=== PATIENT | female | born 1960 | race Caucasian/White ===

== ENCOUNTER 2024-09-30 10:34 | Emergency (ER) | payer MEDICARE ==
--- NOTE | 2024-09-30 10:59 | ED ---
Skin/Abscess/FB HPI - General Chief complaint: Skin/Abscess/Foreign Body Stated complaint: Infection on leg Time Seen by Provider: 09/30/24 10:44 Source: patient, RN notes reviewed Mode of arrival: ambulatory Limitations: no limitations - History of Present Illness Initial comments: This is a 63-year-old female who presents to the emergency department for a left leg infection. States that her dog scratched her on her left leg several weeks ago and this has developed into a larger wound with drainage. She went to urgent care for additional evaluation, however they advised she come here for an IV. This is only mildly uncomfortable. Denies any fevers/chills. Of note, her lower legs are both very scaly and erythematous, which she states is a chronic issue and she has been following with dermatology. Patient also noted to have a low oxygen saturation. She has a history of COPD and states that her oxygen is always in the 80s. They have offered to put her on supplemental oxygen, however she declines that and she states that she does not feel short of breath. - Related Data Previous Rx's Medication Instructions Recorded clindamycin HCL 300 mg PO QID 10 Days #40 capsule 09/30/24 Allergies Allergy/AdvReac Type Severity Reaction Status Date / Time cefaclor [From Ceclor] Allergy Anaphylaxis Verified 09/30/24 10:42 cephalexin [From Keflex] Allergy Hallucinati Verified 09/30/24 10:42 ons Review of Systems ROS Statement: Those systems with pertinent positive or pertinent negative responses have been documented in the HPI. ROS Other: All systems not noted in ROS Statement are negative. Past Medical History Past Medical History: COPD, Hypertension Additional Past Medical History / Comment(s): back pain History of Any Multi-Drug Resistant Organisms: None Reported Past Surgical History: Back Surgery, Hysterectomy Smoking Status: Current every day smoker Past Alcohol Use History: None Reported Past Drug Use History: None Reported General Exam Limitations: no limitations General appearance: alert, in no apparent distress Head exam: Present: atraumatic, normocephalic, normal inspection Respiratory exam: Present: wheezes, decreased breath sounds, prolonged expirator y Cardiovascular Exam: Present: regular rate, normal rhythm Extremities exam: Present: other (Scaling and erythema to the bilateral lower extremities. There is an open wound to the posterior aspect of the left calf with active drainage) Neurological exam: Present: alert, oriented X3, CN II-XII intact Psychiatric exam: Present: normal affect, normal mood Course Vital Signs 09/30/24 09/30/24 09/30/24 10:37 11:23 11:32 Temperature 97.6 F Pulse Rate 97 80 80 Respiratory 18 18 18 Rate Blood Pressure 178/111 O2 Sat by Pulse 82 L Oximetry 09/30/24 09/30/24 09/30/24 11:50 12:35 13:46 Temperature 98.6 F Pulse Rate 77 76 83 Respiratory 22 20 16 Rate Blood Pressure 169/97 156/90 158/105 O2 Sat by Pulse 82 L 82 L 82 L Oximetry Medical Decision Making - Medical Decision Making This is a 63-year-old female who presents to the emergency department for a left leg infection. Was pt. sent in by a medical professional or institution? @ -No Did you speak to anyone other than the patient for history? @ -No Did you review nursing and triage notes? @ -Yes, and I agree, it is accurate with regards to the patient's symptoms. Were old charts reviewed? @ -No Differential Diagnosis? @ -Cellulitis, abscess, abrasion, this is not meant to be an all-inclusive list. EKG interpreted by me (3pts min.)? @ -Not obtained X-rays interpreted by me (1pt min.)? @ -X-ray of the left tib-fib obtained. My interpretation identifies no evidence of osseous erosion. CT interpreted by me (1pt min.)? @ -Not obtained U/S interpreted by me (1pt. min.)? @ -Not obtained What testing was considered but not performed? (CT, X-rays, U/S, labs)? Why? @ -None What meds were considered but not given? Why? @ -None Did you discuss the management of the patient with other professionals? @ -No Did you reconcile home meds? @ -No Was smoking cessation discussed for >3mins.? @ -No Was critical care preformed (if so, how long)? @ -No Were there social determinants of health that impacted care today? How? (Homelessness, low income, unemployed, alcoholism, drug addiction, transportation, low edu. Level, literacy, decrease access to med. care, fdc, rehab)? @ -No Was there de-escalation of care discussed even if they declined? (Discuss DNR or withdrawal of care, Hospice)? @ -No What co-morbidities impacted this encounter? (DM, HTN, Smoking, COPD, CAD, Cancer, CVA, Hep., AIDS, mental health diagnosis, sleep apnea, morbid obesity)? @ -COPD Was patient admitted / discharged? @ -Lab work demonstrates an elevated lactic acid of 4.8 and CRP of 2.0. X-ray of the left tib-fib demonstrates soft tissue swelling without evidence of subcutaneous gas or osseous erosion. She had an open wound on the back of the leg with active drainage. I advised admission given the wound presentation with elevated lactic acid of 4.8. However, patient refused and states that she would rather go home with the understanding that she would need to sign out AMA. Given that she is allergic to cephalosporins, she was given a dose of IV clindamycin prior to discharge and a 10-day course of clindamycin was prescribed. Aerobic and anaerobic wound cultures were obtained as well. Additionally, oxygen saturation was 82% on room air. Patient reports that this is chronic for her. I did offer supplemental oxygen which she refused. States that she is not short of breath and is not concerned about this. While she did leave AMA, we did review strict return parameters and close follow-up with her PCP. Case discussed with ED attending Dr. Blas. Undiagnosed new problem with uncertain prognosis? @ -None Drug Therapy requiring intensive monitoring for toxicity (Heparin, Nitro, Insulin, Cardizem)? @ -None Were any procedures done? @ -None Diagnosis/symptom? @ -Left leg cellulitis Acute, or Chronic, or Acute on Chronic? @ -Acute Uncomplicated (without systemic symptoms) or Complicated (systemic symptoms)? @ -Uncomplicated Side effects of treatment? @ -None Exacerbation, Progression, or Severe Exacerbation] @ -Not applicable Poses a threat to life or bodily function? @ -This will depend on how it progresses - Lab Data Result diagrams: 09/30/24 10:59 09/30/24 10:59 Lab Results 09/30/24 09/30/24 09/30/24 Range/Units 10:59 10:59 10:59 WBC 6.8 (3.8-10.6) k/uL RBC 4.64 (3.80-5.40) m/uL Hgb 15.0 (11.4-16.0) gm/dL Hct 52.0 H (34.0-46.0) % MCV 112.0 H (80.0-100.0) fL MCH 32.4 (25.0-35.0) pg MCHC 28.9 L (31.0-37.0) g/dL RDW 16.2 H (11.5-15.5) % Plt Count 246 (150-450) k/uL MPV 8.5 Neutrophils % 74 % Lymphocytes % 19 % Monocytes % 5 % Eosinophils % 1 % Basophils % 0 % Neutrophils # 5.1 (1.3-7.7) k/uL Lymphocytes # 1.3 (1.0-4.8) k/uL Monocytes # 0.3 (0-1.0) k/uL Eosinophils # 0.1 (0-0.7) k/uL Basophils # 0.0 (0-0.2) k/uL Manual Slide Review Performed Hypochromasia Marked Anisocytosis Slight Macrocytosis Marked A Sodium 142 (137-145) mmol/L Potassium 4.5 (3.5-5.1) mmol/L Chloride 101 (98-107) mmol/L Carbon Dioxide 36 H (22-30) mmol/L Anion Gap 5 mmol/L BUN 16 (7-17) mg/dL Creatinine 0.48 L (0.52-1.04) mg/dL Est GFR (CKD-EPI)AfAm >90 (>60 ml/min/1.73 sqM) Est GFR (CKD-EPI)NonAf >90 (>60 ml/min/1.73 sqM) Glucose 101 H (74-99) mg/dL Lactic Ac Sepsis Rflx Plasma Lactic Acid Miky 4.8 H* (0.7-2.0) mmol/L Calcium 9.1 (8.4-10.2) mg/dL Total Bilirubin 0.6 (0.2-1.3) mg/dL AST 28 (14-36) U/L ALT 16 (4-34) U/L Alkaline Phosphatase 81 (38-126) U/L C-Reactive Protein 2.0 H (<1.0) mg/dL Total Protein 7.6 (6.3-8.2) g/dL Albumin 4.0 (3.5-5.0) g/dL 03/10/25 Range/Units 12:07 WBC (3.8-10.6) k/uL RBC (3.80-5.40) m/uL Hgb (11.4-16.0) gm/dL Hct (34.0-46.0) % MCV (80.0-100.0) fL MCH (25.0-35.0) pg MCHC (31.0-37.0) g/dL RDW (11.5-15.5) % Plt Count (150-450) k/uL MPV Neutrophils % % Lymphocytes % % Monocytes % % Eosinophils % % Basophils % % Neutrophils # (1.3-7.7) k/uL Lymphocytes # (1.0-4.8) k/uL Monocytes # (0-1.0) k/uL Eosinophils # (0-0.7) k/uL Basophils # (0-0.2) k/uL Manual Slide Review Hypochromasia Anisocytosis Macrocytosis Sodium (137-145) mmol/L Potassium (3.5-5.1) mmol/L Chloride (98-107) mmol/L Carbon Dioxide (22-30) mmol/L Anion Gap mmol/L BUN (7-17) mg/dL Creatinine (0.52-1.04) mg/dL Est GFR (CKD-EPI)AfAm (>60 ml/min/1.73 sqM) Est GFR (CKD-EPI)NonAf (>60 ml/min/1.73 sqM) Glucose (74-99) mg/dL Lactic Ac Sepsis Rflx Y Plasma Lactic Acid Miky (0.7-2.0) mmol/L Calcium (8.4-10.2) mg/dL Total Bilirubin (0.2-1.3) mg/dL AST (14-36) U/L ALT (4-34) U/L Alkaline Phosphatase (38-126) U/L C-Reactive Protein (<1.0) mg/dL Total Protein (6.3-8.2) g/dL Albumin (3.5-5.0) g/dL - Radiology Data Radiology results: report reviewed, image reviewed Disposition Clinical Impression: Left leg cellulitis, COPD with hypoxia Disposition: LEFT AGAINST MEDICAL ADVICE Instructions (If sedation given, give patient instructions): Cellulitis (ED) Additional Instructions: Return to the emergency department with any new, worsening, or concerning symptoms. Take the antibiotic as prescribed for 10 days. Follow up with your primary care provider in 1-2 days. Prescriptions: clindamycin HCL 300 mg PO QID 10 Days #40 capsule Is patient prescribed a controlled substance at d/c from ED?: No Referrals: Abe Lilly DO [Primary Care Provider] - 1-2 days Time of Disposition: 13:07
[2024-09-30] MEDS: IPRATROPIUM-ALBUTEROL 3 ML NEB INHALATION STA (11:23)
[2024-09-30 11:26] LABS: Anisocytosis Slight; Basophils % (A) 0 %; Eosinophils # (A) 0.1 k/uL (0-0.7); Eosinophils % (A) 1 %; Hypochromasia Marked; Lymphocytes # (A) 1.3 k/uL (1.0-4.8); Lymphocytes % (A) 19 %; MCH 32.4 pg (25.0-35.0); MCHC 28.9 g/dL (31.0-37.0); Macrocytosis Marked; Mean Platelet Volume 8.5; Monocytes # (A) 0.3 k/uL (0-1.0); Monocytes % (A) 5 %; Neutrophils # (A) 5.1 k/uL (1.3-7.7); Neutrophils % (A) 74 %; Platelet Count 246 k/uL (150-450); RBC 4.64 m/uL (3.80-5.40); RDW 16.2 % (11.5-15.5); WBC 6.8 k/uL (3.8-10.6)
--- NOTE | 2024-09-30 11:38 | XR ---
EXAMINATION TYPE: XR tibia fibula LT DATE OF EXAM: 09/30/2024 11:14 AM COMPARISON: None CLINICAL INDICATION: Female, 63 years old with history of Leg infection; PHH, pain TECHNIQUE: XR tibia fibula LT; examined in AP and lateral projections. FINDINGS: Soft tissue swelling without evidence for radiopaque foreign body saphenous gas or osseous erosion. No evidence of any acute osseous pathology, joint dislocation. IMPRESSION: Soft tissue swelling without evidence for radiopaque foreign body saphenous gas or osseous erosion. N o evidence of acute fracture. [facility], , 09/30/2024 11:35 AM
[2024-09-30 11:53] LABS: ALT 16 U/L (4-34); AST 28 U/L (14-36); African American GFR (CKD) >90 (>60 ml/min/1.73 sqM); Alkaline Phosphatase 81 U/L (38-126); Anion Gap 5 mmol/L; Blood Urea Nitrogen 16 mg/dL (7-17); Calcium 9.1 mg/dL (8.4-10.2); Carbon Dioxide 36 mmol/L (22-30); Chloride 101 mmol/L (98-107); Glucose 101 mg/dL (74-99); Non-African American GFR(CKD) >90 (>60 ml/min/1.73 sqM); Potassium 4.5 mmol/L (3.5-5.1); Sodium 142 mmol/L (137-145); Total Bilirubin 0.6 mg/dL (0.2-1.3); Total Protein 7.6 g/dL (6.3-8.2)
[2024-09-30] MEDS: CLINDAMYCIN 600 MG in DEXTROSE 5% IN WATER 50 ML IVPB STA (11:59)
[2024-09-30] MEDS: SODIUM CHLORIDE 0.9% 1,000 ML IV SCH (12:15)
[2024-09-30 12:37] VITALS: TEMP 98.6
[2024-09-30 13:47] VITALS: BP 158/105; PULSE 83; RESP 16
[2024-09-30 15:35] LABS: Erythrocyte Sedimentation Rate 46 mm/Hr (0-30)
== END 2024-09-30 13:52 | disposition left against medical advice (07) ==
LOC: EC 10:34
DX: L03.116 Cellulitis of left lower limb (principal); J44.9 Chronic obstructive pulmonary disease, unspecified; R74.02 Elevation of levels of lactic acid dehydrogenase [LDH]; F17.200 Nicotine dependence, unspecified, uncomplicated; Z53.29 Procedure and treatment not carried out because of patient's decision for other reasons
CPT/HCPCS: 99284; 96365; 96361; 36415; 94640; 80053; 85652; 83605; 85025; 86140; 87070; 87205; 87075; 73590; J0736

== ENCOUNTER → 2025-01-22 | Outpatient (CLI) | payer MEDICARE ==
[2025-01-22 15:51] LABS: NT-Pro-B-Type Natriuretic Pept 1615 pg/mL (0-125)
[2025-01-22 15:56] LABS: ALT 40 U/L (8-44); AST 36 U/L (13-35); Anion Gap 11.10 mmol/L (4.00-12.00); BUN/Creat Ratio 45.14 Ratio (12.00-20.00); Blood Urea Nitrogen 31.6 mg/dL (9.0-27.0); Calcium 9.4 mg/dL (8.7-10.3); Carbon Dioxide 35.9 mmol/L (21.6-31.8); Chloride 95 mmol/L (96-109); Cholesterol 135.00 mg/dL (0.00-200.00); Glucose 65 mg/dL (70-110); HDL Cholesterol 75.60 mg/dL (40.00-60.00); LDL Cholesterol,Calculated 47.8 mg/dL (0.0-131.0); Potassium 4.8 mmol/L (3.5-5.5); Sodium 142 mmol/L (135-145); Triglycerides 57.90 mg/dL (0.00-149.00); VLDL Calculation 11.58 mg/dL (5.00-40.00)
== END | disposition home or self-care (01) ==
LOC: LABWHC1 10:06
PROVIDERS: ATTEND Internal Medicine Cardiovascular Disease
DX: E78.2 Mixed hyperlipidemia (principal); I50.9 Heart failure, unspecified
CPT/HCPCS: 36415; 80048; 80061; 83880; 84443; 84450; 84460

== ENCOUNTER 2025-02-05 23:46 | Observation (INO) | payer MEDICARE ==
--- NOTE | 2025-02-06 00:03 | ED ---
Psych HPI - General Chief Complaint: Psychiatric Symptoms Stated Complaint: AMS Time Seen by Provider: 02/05/25 23:56 Source: patient, family, RN notes reviewed, old records reviewed Mode of arrival: ambulatory - History of Present Illness Initial Comments: This is a 64 female to the ER for evaluation she is brought in by who states he is at his wits end with her mental status mental health confusion debility weakness failure to thrive and inability to take care of herself complete daily tasks and will 12 MD Complaint: feels depressed, altered mental status, other (Confusion) Associated Psychiatric Symptoms: depression Quality: constant, getting worse Worsens With: medication Context: new medication(s), significant life stressor Associated Symptoms: denies other symptoms Treatments Prior to Arrival: placed on mental health hold - Related Data Home Medications Medication Instructions Recorded Confirmed ALPRAZolam [Xanax] 0.25 mg PO TID 02/06/25 02/06/25 Albuterol Sulfate [Albuterol 2 puff INHALATION RT-Q6H PRN 02/06/25 02/06/25 Sulfate Hfa] Apixaban [Eliquis] 5 mg PO BID 02/06/25 02/06/25 Benzonatate [Tessalon Perle] 200 mg PO QID PRN 02/06/25 02/06/25 Fluticasone/Umeclidin/Vilanter 1 puff INHALATION RT-DAILY 02/06/25 02/06/25 [Trelegy Ellipta 200-62.5-25] Folic Acid 1 mg PO DAILY 02/06/25 02/06/25 Losartan [Cozaar] 25 mg PO DAILY 02/06/25 02/06/25 amLODIPine [Norvasc] 5 mg PO DAILY 02/06/25 02/06/25 methocarbamoL [Robaxin-750] 750 mg PO QID PRN 02/06/25 02/06/25 Previous Rx's Medication Instructions Recorded Acetaminophen Tab [Tylenol] 650 mg PO Q6HR PRN tab 02/07/25 Mirtazapine 7.5 mg PO HS #30 tablet 02/07/25 Allergies Allergy/AdvReac Type Severity Reaction Status Date / Time cefaclor [From Ceclor] Allergy Anaphylaxis Verified 02/06/25 09:12 cephalexin [From Keflex] Allergy Hallucinati Verified 02/06/25 09:12 ons Review of Systems ROS Statement: Those systems with pertinent positive or pertinent negative responses have been documented in the HPI. ROS Other: All systems not noted in ROS Statement are negative. Past Medical History Past Medical History: Heart Failure, COPD, Hypertension Additional Past Medical History / Comment(s): back pain History of Any Multi-Drug Resistant Organisms: None Reported Past Surgical History: Back Surgery, Hysterectomy Past Psychological History: Anxiety, Depression Smoking Status: Current every day smoker Past Alcohol Use History: None Reported Past Drug Use History: Prescription Drug Abuse - Past Family History Father Family Medical History: Coronary Artery Disease (CAD) General Exam Limitations: no limitations General appearance: alert, in no apparent distress Head exam: Present: atraumatic, normocephalic, normal inspection Eye exam: Present: normal appearance, PERRL, EOMI. Absent: scleral icterus, conjunctival injection, periorbital swelling ENT exam: Present: normal exam, mucous membranes moist Neck exam: Present: normal inspection. Absent: tenderness, meningismus, lymphadenopathy Respiratory exam: Present: normal lung sounds bilaterally. Absent: respiratory distress, wheezes, rales, rhonchi, stridor Cardiovascular Exam: Present: regular rate, normal rhythm, normal heart sounds. Absent: systolic murmur, diastolic murmur, rubs, gallop, clicks GI/Abdominal exam: Present: soft, normal bowel sounds. Absent: distended, tenderness, guarding, rebound, rigid Extremities exam: Present: normal inspection, full ROM, normal capillary refill. Absent: tenderness, pedal edema, joint swelling, calf tenderness Back exam: Present: normal inspection Neurological exam: Present: alert, oriented X3, CN II-XII intact Psychiatric exam: Present: normal affect, normal mood Skin exam: Present: warm, dry, intact, normal color. Absent: rash Course Vital Signs 02/05/25 02/06/25 02/06/25 23:49 05:13 06:33 Temperature 97.5 F L Pulse Rate 94 98 102 H Respiratory 16 18 18 Rate Blood Pressure 133/76 164/100 162/106 O2 Sat by Pulse 94 L 94 L 92 L Oximetry - Reevaluation(s) Reevaluation #1: 02/06/25 02:43 Medical records reviewed Reevaluation #2: 02/06/25 02:43 Patient symptoms are unchanged Reevaluation #3: 02/06/25 02:43 Patient is informed of results and questions answered Reevaluation #4: Was pt. sent in by a medical professional or institution ([facility], [employer], urgent care, hospital, or penitentiary...) When possible be specific @ -no Did you speak to anyone other than the patient for history (EMS, parent, family, police, friend...)? What history was obtained from this source @ -no Did you review nursing and triage notes (agree or disagree)? Why? @ -agree Are old charts reviewed (outside hosp., previous admission, EMS record, old EKG, old radiological studies, urgent care reports/EKG's, penitentiary records)? Report findings @ -yes Differential Diagnosis (chest pain, altered mental status, abdominal pain women, abdominal pain men, vaginal bleeding, weakness, fever, dyspnea, syncope, headache, dizziness, GI bleed, back pain, seizure, CVA, palpatations, mental health, musculoskeletal)? @ -prior EKG interpreted by me (3pts min.). @ -yes X-rays interpreted by me (1pt min.). @ -yes negative for acute disease CT interpreted by me (1pt min.). @ -US negative for acute disease U/S interpreted by me (1pt. min.). @ -no What testing was considered but not performed or refused? (CT, X-rays, U/S, labs)? Why? @ -none What meds were considered but not given or refused? Why? @ -none Did you discuss the management of the patient with other professionals (professionals i.e. [facility], [employer], lab, RT, psych nurse, social media community manager, machinery repair maintenance supervisor, teacher, executive vice president and chief financial officer, case packer and sealer)? Give summary @ -no Was smoking cessation discussed for >3mins.? @ -no Was critical care preformed (if so, how long)? @ -no Were there social determinants of health that impacted care today? How? (Homelessness, low income, unemployed, alcoholism, drug addiction, t ransportation, low edu. Level, literacy, decrease access to med. care, [facility], rehab)? @ -none Was there de-escalation of care discussed even if they declined (Discuss DNR or withdrawal of care, Hospice)? DNR status @ -no What co-morbidities impacted this encounter? (DM, HTN, Smoking, COPD, CAD, Can cer, CVA, ARF, Chemo, Hep., AIDS, mental health diagnosis, sleep apnea, morbid obesity)? @ -none Was patient admitted / discharged? Hospital course, mention meds given and route, prescriptions, significant lab abnormalities, going to OR and other pertinent info. @ - 64 female to the ER for evaluation, patient has significant debility severe weight loss unable to eat or drink unable to take care of herself, patient is brought in by who states that at some point patient was lost to go to live she suffers from addiction and severe illness Admitted Undiagnosed new problem with uncertain prognosis? @ -no Drug Therapy requiring intensive monitoring for toxicity (Heparin, Nitro, Insulin, Cardizem)? @ -no Were any procedures done? @ -no Diagnosis/symptom? @ -Altered mental status debility failure to thrive depression Acute, or Chronic, or Acute on Chronic? @ -Acute Uncomplicated (without systemic symptoms) or Complicated (systemic symptoms)? @ -Complicated Side effects of treatment? @ -no Exacerbation, Progression, or Severe Exacerbation? @ -exacerbation Poses a threat to life or bodily function? How? (Chest pain, USA, MS, pneumonia, PE, COPD, DKA, ARF, appy, cholecystitis, CVA, Diverticulitis, Homicidal, Suicidal, threat to staff... and all critical care pts) @ -no Reevaluation #5: Differential Altered Mental Status: Hypoglycemia, DKA, hypercapnia, ETOH, overdose, CO poisoning, trauma, myxedema coma, HTN encephalopathy, infection, encephalitis, psychosis, intercranial hemorrhage, hepatic encephalopathy, meningitis, CVA, this is not meant to be an all-inclusive list Differential Mental Health Depression, anxiety, bipolar, psychosis, schizophrenia, borderline personality, situational depression, adjustment disorder, behavioral disorder, brain tumor, malingering, substance abuse, encephalopathy, medication reaction, dementia, hypothyroidism, degenerative neurologic disorder, lupus.... This is not meant to be all-inclusive list - Consultations Consultation #1: Spoke with Dr. Whiteside agrees to admit this patient Medical Decision Making - Medical Decision Making 64 female to the ER for evaluation, patient has significant debility severe weight loss unable to eat or drink unable to take care of herself, patient is brought in by who states that at some point patient was lost to go to live she suffers from addiction and severe illness - Lab Data Result diagrams: 02/07/25 05:11 02/07/25 05:11 - EKG Data -: EKG Interpreted by Me (EKG sinus 95 VA 144 QRS 84 QTc 409) - Radiology Data Radiology results: report reviewed (CT brain and chest x-ray are negative for acute disease), image reviewed Disposition Clinical Impression: Adjustment reaction of adult life, Suicidal ideation, Depression, Drug abuse, Drug-induced psychotic disorder, Weakness, Failure to thrive Disposition: ADMITTED IP TO THIS HOSP Is patient prescribed a controlled substance at d/c from ED?: No Time of Disposition: 03:00
[2025-02-06] MEDS ORDERED: MORPHINE SULFATE 4 MG/ML SYRINGE IV PRN (02:39)
[2025-02-06] MEDS ORDERED: NALOXONE 0.4 MG/ML 1 ML VIAL IV PRN (02:39)
[2025-02-06] MEDS ORDERED: ONDANSETRON 4 MG/2 ML VIAL IVP PRN (02:39)
[2025-02-06] MEDS: SODIUM CHLORIDE 0.9% 1,000 ML IV ONE (03:19)
[2025-02-06] MEDS: LORazepam 1 MG/0.5 ML VIAL IV STA ×2 (03:19→06:38)
[2025-02-06 03:41] LABS: Basophils # (A) 0.05 10*3/uL (0.00-0.10); Basophils % (A) 0.8 %; Eosinophils # (A) 0.15 10*3/uL (0.04-0.35); Eosinophils % (A) 2.3 %; HCT 34.5 % (37.2-46.3); HGB 10.7 g/dL (12.0-15.0); Lymphocytes # (A) 1.61 10*3/uL (0.90-5.00); Lymphocytes % (A) 24.2 %; MCH 32.0 pg (27.0-32.0); MCHC 31.0 g/dL (32.0-37.0); MCV 103.3 fL (80.0-97.0); Monocytes # (A) 0.64 10*3/uL (0.20-1.00); Monocytes % (A) 9.6 %; Neutrophils # (A) 4.16 10*3/uL (1.80-7.70); Neutrophils % (A) 62.5 %; Platelet Count 346 10*3/uL (140-440); RBC 3.34 10*6/uL (4.10-5.20); RDW 16.1 % (11.5-14.5); WBC 6.65 10*3/uL (4.50-10.00)
[2025-02-06 03:45] LABS: Bilirubin,Urine 1+ (Negative); Blood,Urine Negative (Negative); Color,Urine Light Yellow; Glucose,Urine (UA) 4+ (Negative); Ketones,Urine Negative (Negative); Leukocyte Esterase,Urine Negative (Negative); Nitrite,Urine Negative (Negative); PH, Urine 5.0 (5.0-8.0); Protein,Urine Trace (Negative); Urobilinogen,Urine <2.0 mg/dL (<2.0)
[2025-02-06 03:54] LABS: ALT 18 U/L (4-34); AST 22 U/L (14-36); African American GFR (CKD) >90 (>60 ml/min/1.73 sqM); Albumin 3.7 g/dL (3.5-5.0); Alkaline Phosphatase 124 U/L (38-126); Anion Gap 8 mmol/L; Blood Urea Nitrogen 14 mg/dL (7-17); Calcium 9.3 mg/dL (8.4-10.2); Carbon Dioxide 34 mmol/L (22-30); Chloride 98 mmol/L (98-107); Glucose 96 mg/dL (74-99); Magnesium 1.8 mg/dL (1.6-2.3); Non-African American GFR(CKD) >90 (>60 ml/min/1.73 sqM); Opiate Screen,Urine Detected (NotDetected); Phencyclidine Screen,Urine Not Detected (NotDetected); Potassium 4.7 mmol/L (3.5-5.1); Sodium 140 mmol/L (137-145); Specific Gravity,Urine 1.050 (1.001-1.035); Total Protein 7.2 g/dL (6.3-8.2)
[2025-02-06 03:55] LABS: Barbiturate Screen,Urine Not Detected (NotDetected); Benzodiazepines Screen,Urine Detected (NotDetected); INR 1.0 (<1.2); Oxycodone Screen, Urine Not Detected (NotDetected); Partial Thromboplastin Time 32.2 sec (22.0-30.0); Prothrombin Time 10.6 sec (10.0-12.5); Tricyclic Antidepressant,Urine Not Detected (NotDetected); Urn Cannabinoid Scrn Not Detected (NotDetected)
[2025-02-06 04:04] LABS: NT-Pro-B-Type Natriuretic Pept 582 pg/mL
[2025-02-06 05:01] LABS: Lactic Acid, Venous 4.0 mmol/L (0.7-2.0)
[2025-02-06] MEDS: LABETALOL 5 MG/ML VIAL MDV IVP STA (06:40)
--- NOTE | 2025-02-06 07:20 | CT ---
EXAMINATION TYPE: CT brain wo con DATE OF EXAM: 02/06/2025 6:23 AM COMPARISON: None. CLINICAL INDICATION: Female, 64 years old with history of altered mental status TECHNIQUE: Brain: Axial CT images of the brain were obtained with coronal and sagittal reformats created and rev iewed. Contrast used: None. Oral contrast used: None. CT DLP: 1127 mGycm, Automated exposure control for dose reduction was used. FINDINGS: Brain: Extra-axial spaces: No abnormal extra-axial fluid collections. Ventricular system: Dilatation in proportion to cerebral atrophy. Cerebral parenchyma: Cerebral atrophy. No acute intraparenchymal hemorrhage or mass effect. The krishnan -white junction is well differentiated. Scattered hypoattenuating areas are seen within the white mat ter. Cerebellum: Unremarkable. Mass effect: No evidence of midline shift. Intracranial vasculature: Atherosclerotic calcifications of the intracranial vessels. Soft tissues: Normal. Calvarium/osseous structures: No depressed skull fracture. Paranasal sinuses and mastoid air cells: Mild scattered paranasal sinus disease. Visualized orbits: Right aphakia IMPRESSION: 1. No acute intracranial process. 2. Nonspecific white matter changes, likely secondary to chronic small vessel ischemic disease. [facility], , 02/06/2025 7:17 AM
--- NOTE | 2025-02-06 07:57 | US ---
EXAMINATION TYPE: US venous doppler duplex LE BI DATE OF EXAM: 02/06/2025 7:48 AM COMPARISON: NONE CLINICAL INDICATION: Female, 64 years old with history of pe; PE per order. Patient is on Eliquis. TECHNIQUE: The lower extremity deep venous system is examined utilizing real time linear array sonog destiny with graded compression, doppler sonography and color-flow sonography. Grayscale, color doppler , spectral doppler imaging performed of the deep veins of the lower extremities FINDINGS: SIDE PERFORMED: Bilateral VESSELS IMAGED: Common Femoral Vein Deep Femoral Vein Greater Saphenous Vein * Femoral Vein Popliteal Vein Small Saphenous Vein * Proximal Calf Veins (* superficial vessels) Right Leg: No evidence of DVT. Color Doppler flow with appropriate venous spectral waveforms. Normal compressibility. Left Leg: No evidence of DVT. Color Doppler flow with appropriate venous spectral waveforms. Normal compressibility. *Duplicate mid and distal femoral vein noted. IMPRESSION: No evidence for deep vein thrombosis. [facility], , 02/06/2025 7:55 AM
[2025-02-06] MEDS: LORazepam 1 MG/0.5 ML VIAL IV PRN (09:48)
[2025-02-06 11:18] VITALS: BMI 17.3
[2025-02-06] MEDS: FOLIC ACID 1 MG TAB PO SCH (11:47)
[2025-02-06] MEDS: APIXABAN 5 MG TAB PO SCH (11:48)
[2025-02-06] MEDS: LOSARTAN 25 MG TAB PO SCH (11:48)
[2025-02-06] MEDS: ACETAMINOPHEN TAB 325 MG TAB PO PRN (11:48)
[2025-02-06] MEDS: amLODIPine 5 MG TAB PO SCH (11:48)
[2025-02-06] MEDS: SYMBICORT 160-4.5 MCG INHALER INHALATION SCH (11:55)
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
[2025-02-06] MEDS ORDERED: DEXTROSE 50% SYRINGE 50 ML IVP PRN ×2 (14:27)
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
[2025-02-06 15:16] LABS: Glucose,Whole Blood 108 mg/dL (70-110)
[2025-02-06] MEDS: INSULIN LISPRO (HumaLOG) 100 UNIT/ML 10 mL VL SQ SCH (15:16)
[2025-02-06] MEDS: LACTATED RINGERS 1,000 ML IV SCH (15:16)
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
[2025-02-06] MEDS: ALPRAZolam 0.25 MG TAB PO SCH (15:59)
--- NOTE | 2025-02-06 16:07 | XR ---
EXAMINATION TYPE: XR chest 2V DATE OF EXAM: 02/06/2025 3:44 PM COMPARISON: 01/29/2025 CLINICAL INDICATION: Female, 64 years old with history of COPD, , TECHNIQUE: PA and lateral views FINDINGS: Extensive posterior thoracolumbar spinal fusion hardware. Heart borderline enlarged. Hyperinflation. Mid to lower thoracic anterior vertebral wedge deformity. A couple levels of vertebroplasty change lo wer thoracic spine. No dixie consolidation or pleural effusion seen. IMPRESSION: Borderline heart size and COPD. No definite acute process. Extensive thoracolumbar fusion hardware an d a couple levels of vertebroplasty. [facility], Workstation: [facility], 02/06/2025 4:05 PM
[2025-02-06 16:16] LABS: Glucose,Whole Blood 129 mg/dL (70-110)
[2025-02-06 21:16] LABS: Glucose,Whole Blood 107 mg/dL (70-110)
[2025-02-06] MEDS: MIRTAZAPINE 15 MG TAB PO SCH (21:28)
[2025-02-07 06:19] LABS: Glucose,Whole Blood 108 mg/dL (70-110)
[2025-02-07] MEDS: ALBUTEROL NEBULIZED 2.5 MG/3 ML INHALATION PRN (08:09)
[2025-02-07] MEDS: TIOTROPIUM 2.5 MCG INHALER INHALATION SCH (08:09)
[2025-02-07 08:18] LABS: Basophils # (A) 0.04 X 10*3/uL (0.00-0.10); Basophils % (A) 0.6 %; Eosinophils # (A) 0.14 X 10*3/uL (0.04-0.35); Eosinophils % (A) 2.2 %; HCT 36.5 % (37.2-46.3); HGB 10.9 g/dL (12.0-15.0); Immature Grans, Automated 0.50 %; Lymphocytes # (A) 1.43 X 10*3/uL (0.90-5.00); Lymphocytes % (A) 22.1 %; MCH 31.3 pg (27.0-32.0); MCHC 29.9 g/dL (32.0-37.0); MCV 104.9 FL (80.0-97.0); Monocytes # (A) 0.79 X 10*3/uL (0.20-1.00); Monocytes % (A) 12.2 %; NRBC Per 100 WBC 0 X 10*3/uL (0.00-0.01); Neutrophils # (A) 4.03 X 10*3/uL (1.80-7.70); Neutrophils % (A) 62.4 %; Platelet Count 401 X 10*3/uL (140-440); RBC 3.48 X 10*6/uL (4.10-5.20); RDW 16.4 % (11.5-14.5); WBC 6.46 X 10*3/uL (4.50-10.00)
[2025-02-07 08:48] LABS: ALT 16 U/L (8-44); AST 18 U/L (13-35); Albumin 3.5 g/dL (3.8-4.9); Albumin/Globulin Ratio 1.09 Ratio (1.60-3.17); Alkaline Phosphatase 106 U/L (41-126); Anion Gap 10.40 mmol/L (4.00-12.00); BUN/Creat Ratio 15.00 Ratio (12.00-20.00); Blood Urea Nitrogen 7.5 mg/dL (9.0-27.0); Calcium 9.2 mg/dL (8.7-10.3); Carbon Dioxide 32.6 mmol/L (21.6-31.8); Chloride 102 mmol/L (96-109); Globulin 3.2 g/dL (1.6-3.3); Glucose 101 mg/dL (70-110); Magnesium 1.8 mg/dL (1.5-2.4); Potassium 4.2 mmol/L (3.5-5.5); Sodium 145 mmol/L (135-145); Total Protein 6.7 g/dL (6.2-8.2)
[2025-02-07 11:46] LABS: Glucose,Whole Blood 135 mg/dL (70-110)
[2025-02-07 14:33] VITALS: BP 156/92; PULSE 83; RESP 20; TEMP 97.7
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
== END 2025-02-07 16:03 | disposition home or self-care (01) ==
LOC: EC 23:46 → 4SSUR 02-06 02:39
PROVIDERS: ADMIT Hospitalist; ATTEND Hospitalist
DX: G93.41 Metabolic encephalopathy (principal); E44.0 Moderate protein-calorie malnutrition; F11.10 Opioid abuse, uncomplicated; E87.20 Acidosis, unspecified; F13.10 Sedative, hypnotic or anxiolytic abuse, uncomplicated; F10.21 Alcohol dependence, in remission; F17.210 Nicotine dependence, cigarettes, uncomplicated; E11.9 Type 2 diabetes mellitus without complications; F32.A Depression, unspecified; F41.9 Anxiety disorder, unspecified; G89.29 Other chronic pain; M54.50 Low back pain, unspecified; I11.0 Hypertensive heart disease with heart failure; I50.9 Heart failure, unspecified; J44.9 Chronic obstructive pulmonary disease, unspecified; Z79.01 Long term (current) use of anticoagulants; Z79.84 Long term (current) use of oral hypoglycemic drugs; Z79.899 Other long term (current) drug therapy; Z88.1 Allergy status to other antibiotic agents; Z68.1 Body mass index [BMI] 19.9 or less, adult
CPT/HCPCS: 96376 ×2; 82075; 96361; 96374; 96375; 99285; 94640 ×4; 93005; 97161; 97166; 85379; 83880; 80053 ×2; 82140; 83605; 83735 ×2; 84100 ×2; 84443; 84484; 85025 ×2; 85610; 85730; 81003; 80306; 80320; 71046; 93970; 70450; 71275; G0378 ×2; J2060; Q9967; J1920